=== PATIENT | male | born 1940 | race Caucasian/White ===

== ENCOUNTER 2018-03-14 13:10 | Outpatient (CLI) | payer MEDICARE, BC ==
--- NOTE | 2018-03-14 14:19 | RAD ---
PA AND LATERAL OF THE CHEST: INDICATION: Activity intolerance. COMPARISON: None. FINDINGS: There is moderate COPD change. Nipple shadows overlie both lower hemithoraces. Heart size is normal . Mild vascular calcifications involving the thoracic aorta. No pleural effusion or pneumothorax. 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 IMPRESSION: Chronic obstructive pulmonary disease. POS: DEVANTE
--- NOTE | 2018-03-14 14:27 | ULT ---
CAROTID ULTRASOUND: History: Pre-syncopal episode. Comparison: None. Technique: Grayscale, color flow, doppler imaging and spectral waveform analysis was performed of the carotid vertebral arteries. FINDINGS: Right: There are calcified and noncalcified plaques throughout the carotid artery. Peak systolic [place] of the common carotid artery is 69.0 cm/sec. Peak systolic velocity internal carotid is 82.3 cm/ sec. Systolic ICA to CCA ratio 1.1. Left: There is atherosclerotic disease throughout the carotid artery. Peak systolic velocity of the c ommon carotid is 86.7 cm/sec. Peak systolic velocity internal carotid artery is 68.4 cm/sec. Systolic ICA to CCA ratio is 0.9. Antegrade flow in both vertebral arteries. IMPRESSION: Extensive atherosclerotic disease throughout the carotid arteries. Better interrogation with CT angio gram of the neck is recommended. POS: DEVANTE
== END 2018-03-14 13:11 | disposition home or self-care (01) ==
LOC: ULT 13:10
PROVIDERS: ATTEND Family Medicine
DX: R55 Syncope and collapse (principal); R68.89 Other general symptoms and signs; I65.23 Occlusion and stenosis of bilateral carotid arteries; J44.9 Chronic obstructive pulmonary disease, unspecified
CPT/HCPCS: 71046; 93880